=== PATIENT | female | born 1960 | race Caucasian/White ===

== ENCOUNTER → 2022-06-10 | Outpatient (CLI) | payer MEDICARE, OTHER ==
[~2022-06-10] MED LIST: CALACE667G PO; CHOL10002 PO; CITA20; CLON1 PO; CYCL10 PO; DIAZ5 PO; GABA300; GABA600 PO; HYDMOR4 PO; IBUP800; MELO7.5 PO; METH10; METH10 PO; METH40 PO; MORP30 PO; MORP30ER PO; OXYACE5T PO; PRED20 PO; TOBR.3OPSO OP; TRAZ100; TRAZ100 PO; TRAZ50 PO; UBID10 PO
== END ==
LOC: LAB SHORT 17:00
DX: R30.0 Dysuria (principal)
CPT/HCPCS: 87086